=== PATIENT | male | born 1995 | race Caucasian/White ===

== ENCOUNTER 2016-04-06 22:15 | Emergency (ER) | payer BC ==
--- NOTE | 2016-04-06 22:33 | EDPHY ---
H & P Source: Patient - Personal History Tetanus Vaccine Date: 2012 - Medical/Surgical History Hx Asthma: No Hx Chronic Respiratory Disease: No Hx Diabetes: No Hx Cardiac Disease: No Hx Renal Disease: No Hx Cirrhosis: No Hx Alcoholism: No Hx HIV/AIDS: No Hx Splenectomy or Spleen Trauma: No Other PMH: ADHD, Bronchitis, TNA - Social History Smoking Status: Never smoked HPI/ROS: HPI CHIEF COMPLAINT: Alcohol intoxication head trauma HISTORY OF PRESENT ILLNESS: This patient very pleasant 20-year-old male, he has seized in, he was drinking alcohol tonight he had multiple shots of Tequila , he also did cocaine tonight and smoked cigarettes, he was on a trampoline he was attempting to do double back flips. He tells me he was intoxicated he did double back flip he landed his head against the metal surrounding bar around the trampoline with Runnells attach. No LOC. He stayed on the trampoline. He has a laceration at the posterior occiput. He is complaining of a headache. Upon arrival here in the emergency room he arrived by private vehicle he has a GCS 15, alert and x4, he is intoxicated with alcohol smells of alcohol. At triage patient was placed in a cervical collar. patient tells me is not up-to -date on his tetanus shot however he does not want he is refusing a tetanus update. Past Medical History: Denies medical history Past Surgical History: Denies surgical history Social History:[employer] student, endorses alcohol this evening, cocaine this evening, occasional tobacco, denies marijuana Family History: Noncontributory ROS REVIEW OF SYSTEMS: A comprehensive 10 point review of systems is otherwise negative aside from elements mentioned in the history of present illness. Exam Constitutional triage nursing summary reviewed, vital signs reviewed, awake/ alert. Eyes normal conjunctivae and sclera, EOMI, PERRLA. HENT head/neck: Soft cervical collar on, head there is a midline posterior occiput 7 cm vertically oriented laceration, he has no midline cervical spine pain there is no step-offs or crepitus, he does have paravertebral pain to the C -spine, moist mucus membranes, no epistaxis, neck supple/ no meningismus, no raccoon eyes. Respiratory clear to auscultation bilaterally, normal breath sounds, no respiratory distress, no wheezing. Cardiovascular rate normal, regular rhythm, no murmur, no edema, distal pulses normal. Gastrointestinal soft, non-tender, no rebound, no guarding, normal bowel sounds, no distension, no pulsatile mass. Genitourinary no CVA tenderness. Musculoskeletal no midline vertebral tenderness, full range of motion, no calf swelling, no tenderness of extremities, no meningismus, good pulses, neurovascularly intact. Skin pink, warm, & dry, no rash, skin atraumatic. Neurologic awake, alert and oriented x 3, AAOx3, moves all 4 extremities equally, motor intact, sensory intact, CN II-XII intact, normal cerebellar, normal vision, normal speech. Psychiatric normal mood/affect. Heme/Lymph/Immune no lymphadenopathy. Differential Diagnosis: Includes but is not limited to in a particular order, alcohol intoxication, drug intoxication, head trauma, closed-head injury, concussion, scalp hematoma, scalp laceration, cervical spine injury including fracture, malalignment, ligamentous injury, soft tissue injury Medical Decision Making: this patient will remain in a cervical collar he will have a CT scan of his head and CT scan of his cervical spine to rule out significant trauma will need to repair his laceration. Re-evaluation: CT scan of the head without IV contrast. The results of the study are negative for acute traumatic injury The study was read by Dr. Carson I viewed the images myself on the PACS system. CT scan of the cervical spine. The results of the study are negative for acute traumatic injury. The study was read by Dr. Carson I viewed the images myself on the PACS system. 2329: Re-evaluation this time this patient is resting comfortably he is clinically sober. His breath alcohol when he arrived here was 0.225. Was able to clear his cervical collar is he has no midline cervical spine pain he is sober. His CT scans have been reviewed did not show acute trauma. Still needs his laceration repaired. It will be copiously cleaned and irrigated with sterile fluid. And then will need edlio placed. 1232: This patient's CT scans have been reviewed. His laceration has been stapled. Please see Emi LEIJA procedure note. Patient understands have his delio removed in 7 days. Keep wound clean dry intact. Return to the emergency room if there is any worsening symptoms includes worsening headache, vomiting or you not acting appropriate. Please refrain from drinking alcohol over the next week. (Luis M Cesar) Constitutional: Initial Vital Signs Temperature (C) 36.7 C 04/06/16 22:35 Heart Rate 103 H 04/06/16 22:35 Respiratory Rate 14 04/06/16 22:35 Blood Pressure 157/88 H 04/06/16 22:35 O2 Sat (%) 96 04/06/16 22:35 O2 Delivery Mode Room Air Allergies/Adverse Reactions: albuterol Allergy (Verified 04/06/16 22:34) Home Medications: Medication Instructions Recorded NK [No Known Home Meds] 04/06/16 Medical Decision Making Procedures: scalp laceration repair: Posterior occipital scalp lac was irrigated per protocol by health technician hearing. Under sterile procedure, the wound was explored to its base with a gloved finger and no foreign body was identified. No deep structure identified. Wound was repaired using # 5 delio After repair, laceration cleansed, bacitracin applied. Procedure performed by myself. Procedure was simple. Pt tolerated the procedure well. (Emi George) Departure - Departure Disposition: Home, Routine, Self-Care Clinical Impression: Alcohol intoxication, Head injury, Laceration of head Condition: Good Instructions: Alcohol Intoxication (ED), Head Injury (ED), Concussion (ED), Staple Care (ED) Additional Instructions: 1. You need to have your delio removed in 7 days. 2. Please keep your wound clean, dry, and intact. 3. You may get warm soapy water on this wound tomorrow. Do not inject anything into the wound. 4. Return to the emergency room if you develop any worsening symptoms including vomiting or severe headache. Referrals: OUT OF STATE,. [Primary Care Provider] - As per Instructions
[2016-04-06 22:37] VITALS: TEMP 98.1; O2SAT 96
--- NOTE | 2016-04-06 23:23 | CT ---
CT Brain (Without Contrast) at 2250 hours History: Head trauma, struck back of head on trampoline, EtOH alcohol intoxication. Comparison: None. Technique: Axial computed tomographic images of the brain without contrast. Dose reduction technique s were utilized. Findings: Ventricles, cisterns, and sulci are normal without atrophy, hydrocephalus, midline shift/h erniation, or epidural/subdural hematomas. No acute intraparenchymal hemorrhage, definite infarct, or mass effect. Bone windows demonstrate no displaced fractures. Paranasal sinuses and mastoid air cell s are clear. Mild soft tissue swelling posterior scalp. Impression: 1. Normal CT brain without contrast. 2. No epidural or subdural hematoma. Findings and recommendations discussed with Emergency Department physician, Dr. Luis M Cesar at 23 10 hour, today. Final report concurs with initial preliminary interpretation.
--- NOTE | 2016-04-06 23:24 | CT ---
CT Scan of the Cervical Spine (Without Contrast) (With Multiplanar Reconstructions) at 2250 hours Clinical Indications: Fall, pain. Head trauma, struck back of head on trampoline, EtOH alcohol intox ication. Technique: Thinly collimated multidetector helical CT imaging of the cervical spine was reviewed in multiple planes. Multiplanar reconstructions reviewed on [employer] workstation and performed to better e valuate alignment. Dose reduction techniques were utilized. Findings: No definite acute cervical spine fracture. Normal cervical alignment. No compression fract ures. No bony central canal or neural foraminal stenosis. No odontoid fracture. Craniocervical juncti on demonstrates no definite fracture. No prevertebral soft tissue swelling. Impression: 1. No definite fracture. 2. If there is persistent pain or neurological deficit, recommend MR cervical spine and consider flex ion and extension views, if clinically indicated. Findings and recommendations discussed with Emergency Department physician, Dr. Luis M Cesar at 23 10 hour, today. Final report concurs with initial preliminary interpretation.
[2016-04-07 00:42] VITALS: BP 125/87; PULSE 71; RESP 16
== END 2016-04-07 00:45 | disposition home or self-care (01) ==
PROC: 0HQ0XZZ Repair Scalp Skin, External Approach (ICD-10-PCS; principal; 2016-04-06)
DX: S01.01XA Laceration without foreign body of scalp, initial encounter (principal); F10.129 Alcohol abuse with intoxication, unspecified; F17.210 Nicotine dependence, cigarettes, uncomplicated; W09.8XXA Fall on or from other playground equipment, initial encounter
CPT/HCPCS: L0172